=== PATIENT | female | born 2000 | race Two or more races ===

== ENCOUNTER 2024-10-20 14:25 | Observation (INO) | payer MEDICAID, SELFPAY ==
[2024-10-20 14:38] VITALS: BP 117/65; PULSE 115
[2024-10-20 14:39] VITALS: BMI 35.4
[2024-10-20 14:40] VITALS: BP 117/65; PULSE 115; RESP 100; RESP 18; TEMP 36.9
--- NOTE | 2024-10-20 15:10 | XR_ITS ---
Examination: OB Transvaginal ultrasound of the pelvis, limited Technique: Transvaginal sonographic images pelvis performed using ferrell scale imaging Exam date and time: October 20, 2024 1551 hours INDICATIONS: Vaginal bleeding beginning 2 days ago, unknown cervical length FINDINGS: Cardiac motion 150 BPM Cervix 2.7 cm closed IMPRESSION: Cervix 2.7 cm closed.
--- NOTE | 2024-10-20 15:10 | XR_ITS ---
Examination: Complete OB ultrasound greater than 14 weeks Date and time of exam: October 20, 2024 1529 hours INDICATIONS: Vaginal bleeding 2 days Findings: Viable intrauterine single fetus with single amniotic sac presentation cephalic Cardiac motion 148 BPM Placenta posterior grade 1 venous lakes, no abruption Umbilical cord insertion seen Amniotic fluid adequate Cervix 2.9 cm closed Right ovary 2.6 cm arterial flow Left ovary 2.4 cm arterial flow. Composite estimated gestational age based on BPD, head circumference, abdominal circumference, femur length is 20 weeks 0 days Estimated weight 332 g. Survey of intracranial anatomy, spinal anatomy, abdominal anatomy, four-chamber heart performed with no abnormalities identified. Impression: Viable intrauterine gestation cephalic presentation Negative for placental abruption.
== END 2024-10-20 17:30 | disposition home or self-care (01) ==
PROVIDERS: Admitting Provider Specialist; Visit Provider Specialist
DX: O46.92 Antepartum hemorrhage, unspecified, second trimester (principal); Z3A.21 21 weeks gestation of pregnancy
CPT/HCPCS: 59025; 59899; 76805; 76817

== ENCOUNTER 2024-12-25 15:17 | Outpatient (AMB) | payer MEDICAID, SELFPAY ==
[2024-12-25 15:30] VITALS: BP 117/82; PULSE 89; RESP 17; TEMP 36.7; O2SAT 96; BMI 37.0
--- NOTE | 2024-12-25 15:30 | OBCLNT_ITS ---
Vital Signs 12/25/24 15:30 Height 1.55 m Height Method Measured Weight 89.074 kg Weight Measurement Method Standing Scale BMI 37.0 BP 117/82 Blood Pressure Source Automatic Cuff Blood Pressure Location Right Upper Arm Position Sitting Respiration 17 Pulse 89 Pulse Source Monitor Temp 98.0 F Temp Source Temporal Artery Scan Pulse Oximetry (%) 96 Oxygen Delivery Method Room Air Allergies/Home Meds Allergies & Medications Allergies No Known Allergies Allergy (Verified 12/25/24 15:31) Medication Reconciliation No Known Home Medications 12/25/24 [History Confirmed 12/25/24] Intake Visit Data Collection New Patient or Established: Established Patient (seen at [facility] within 3 years) Reason for Visit:: OB TRANSFER Consent obtained for Telemed Visit: No Seen by Clinical Staff ONLY (RN/MA): No Counselor Supervisor Required: No Do You Feel Safe at Home: Yes Authorities Contacted: N/A PCP or OBGYN visit in last 3 months: Yes Date of Last PCP or OBGYN visit: 10/20/24 Hx Now: Yes Are you currently on any form of Control: No Last menstrual period: 05/19/24 Pain Present Currently: Yes Pain Location: Abdomen Pain scale:: 5 Smoking Status Smoking Status: Never smoker Questionnaires Covid-19 Vaccine Questionnaire Has patient been vacinated for Covid-19 Have you been vacinated for Covid-19: No PHQ-9 PHQ-2 Over the last 2 weeks, how often have you been bothered by any of the following problems? 1. Little interest or pleasure in doing things: not at all 2. Feeling down, depressed, or hopeless: not at all Total score: 0 PHQ-9 3. Trouble falling or staying asleep, or sleeping too much: Not at all 4. Feeling tired or having little energy: Not at all 5. Poor appetite or overeating: Not at all 6. Feeling bad about yourself - or that you are a failure or have let yourself or your family down: Not at all 7. Trouble concentrating on things, such as reading the newspaper or watching television: Not at all 8. Moving or speaking so slowly that other people could have noticed? - Or the opposite - being so fidgety or restless that you have been moving around a lot more than usual: not at all 9. Thoughts that you would be better off or of hurting yourself in some way: Not at all Total score: 0 If you checked off any problems, how difficult have these problems made it for you to do your work, take care of things at home, or get along with other people?: not difficult at all Source: Developed by Drs. Dae Esquivel, Edith Schwab, Philippe Grider and colleagues, with an educational kellen from [employer]. Social History Living Situation History Lives With: Family Housing: House Tobacco History Smoking Status: Never smoker Alcohol History Alcohol Intake: Never Domestic Abuse History Do You Feel Safe at Home: Yes History of Present Illness HPI Narrative Kitty Calix is a 24-year-old at 30 weeks gestation, transferring care from Dr. Hunt at [facility]. She has a history of at 32 weeks in 2021 and is presenting for ongoing care and management of potential labor risk. The patient's last menstrual period was on 04-18-2024, initially giving an estimated due date of 01-23-2025. However, an ultrasound on December 02, 2024, placed her at 26 weeks and 5 days with a revised estimated due date of 03-05-2025. Due to the 6-week discrepancy between her last menstrual period and ultrasound dates, the final due date has been established by ultrasound. Ms. Calix reports experiencing low pressure but denies any contractions or leaking. Given her history of , a referral was sent to [facility] for monitoring labor in November, but the patient has not been contacted. In her previous , she delivered a 4-pound female fetus at 32 weeks due to contractions. Medical History: - Chlamydia, treated in October 2024 - Anemia during previous Obstetric History: - GPAL: A0 L1 - 2021: delivery at 32 weeks gestation due to contractions. Female , weight 4 pounds. Did not breastfeed. - Ultrasound (12-02-2024): Gestational age 26 weeks and 5 days, estimated due date 03/05/2025 [employer]: Past Medical History Past Medical History: No Hx Renal Disease, No Hx Diabetes Mellitus Type 1 and No Hx Diabetes Mellitus Type 2 OB Initial Visit OB Flowsheet OB Flowsheet Initial Weight: Not Recorded Date -?-?-?-?-?-?-?-?-?-?-?-?- EGA Weight BP Alb Glu CTX Pres Fundal ht FHR Mov Dilation Station Effacement Hx Notes Visit Note 12/25/24 -?-?-?-?-?-?-?-?-?-?-?-?- 30w 0d 89.074 kg 117/82 absent unknown 30 145 active 30w (ANGELICA 03/05/25 by US) w/ hx of at 32w, now c/o low pelvic pressure, no CTX/LOF. Hx of treated chlamydia (10/30), prior anemia. Plan: TVUS for CL, fFN at hospital, give betamethasone, refer stat to [facility], use US-based ANGELICA, review labs for Hb and ASHWIN at next visit after 2wks. PTL precautions reviewed in detail Menstrual History Menstrual reliability: approximate (month known) Flow: normal Menstrual regularity: regular Monthly: Yes Age at menarche: 12 On control pills at conception: No Date of positive home test: 09/05/24 OB History : 2 Para: 1 Hx # Pregnancies: 0 Hx Total # of Abortions (Spontaneous & Elective): 0 # of Living Children: 1 Infection History & Risk Evaluation History of STDs: none HIV risk evaluation: low risk Hepatitis B risk evaluation: low risk Patient or partner has history of Genital Herpes: No Genetic Screening & History Genetic Screening/Teratology Counseling - Includes patient, baby's father, or anyone in either family with: 1. Patient's age 35 years or older as of estimated date of delivery: No 2. Thalassemia (Austrian, Kinyarwanda, Mediterranean, or Background); MCV less than 80: No 3. Neural Tube Defect (Meningomyelocele, Spina Bifida, or Anencephaly): No 4. Congenital Heart Defect: No 5. Down Syndrome: No 6. Canelo-Sachs (Ashkenazi Jain, Cajun, Cameroonian Burmese): No 7. Leonard Disease (Ashkenazi Jain): No 8. Familial Dysautonomia (Ashkenazi Jain): No 9. Sickle Cell Disease or Trait (): No 10. Hemophilia or other blood disorders: No 11. Muscular Dystrophy: No 12. Cystic Fibrosis: No 13. [place]'s Chorea: No 14. Mental Retardation/Autism: No 15. Other inherited genetic or chromosomal disorder: No 16. Maternal Metabolic Disorder (EG,TYPE 1 Diabetes, PKU): No 17. Patient or baby's father had a child with defects not listed above: No 18. Recurrent loss or a stillbirth: No 19. Medications (including supplements, vitamins, herbs or otc drugs)/illicit/recreational drugs/alcohol since last menstrual period: No 20. Any other: No Infection History 1. Live with someone with TB or exposed to TB: No 2. Rash or viral illness since last menstrual period: No 3. Hepatitis B,C: No Other (see comments) Source: [employer] Exam General General Appearance: alert, in no apparent distress and healthy appearing Head Head exam: atraumatic Neck Neck exam: Present normal inspection and trachea midline Chest Chest inspection: Present normal inspection and symmetric chest wall rise External exam: Present normal external exam; Absent tenderness Neuro Neurological exam: Present oriented X3 Psych Psychiatric exam: Present normal affect and normal mood Office Procedures OB Clinic LOC & Office Proc's Nursing/Assessment Patient Status: Established Patient OB Clinic Nursing Assessment: Medication Reconciliation, Update PMH in EMR and Vital Signs OB Clinic Coordination of Care: Complex Care and Chronic Disease 1-5, Consent,records obtained, informed consent, 4+ Authorizations needed, Lab and Imaging orders and Results/Orders obtained Special Needs: Heart tones Established Patient Charge Established Patient Point Assignment: 135 Established Patient Point Charge: EP Level 4 (120-155) Assessment & Plan Diagnosis / Problem List (1) History of delivery, currently : Status: Acute (2) Supervision of high risk , unspecified, third trimester: Status: Acute Plan at risk for labor Assessment: Patient is currently at 30 weeks gestation based on ultrasound dating. History of at 32 weeks in 2021 increases risk for recurrent labor. Patient reports low pressure but denies contractions or leaking fluid. Plan: - Perform transvaginal ultrasound for cervical length measurement - Collect fibronectin test at the hospital - Administer betamethasone - Place stat referral to [facility] or [facility] specialist for labor monitoring - If cervical length <3 cm, consider medication to prevent labor - Complete OB ultrasound Discrepancy in estimated due date Assessment: 6-week discrepancy noted between last menstrual period and ultrasound dating. Ultrasound performed on 12/02/2024 placed gestational age at 26 weeks and 5 days. Given the significant discrepancy, ultrasound dating is being used to establish the final due date. Plan: - Establish final ANGELICA as 03/05/2025 based on ultrasound dating - Educate patient on revised gestational age and due date History of chlamydia infection Assessment: Patient was treated for chlamydia in October 2024. Current infection status unknown. Plan: - Review records for confirmation of adequate treatment and test of cure - Consider repeat testing if indicated History of anemia Assessment: Patient reported anemia in previous . Current hemoglobin status unknown. Plan: - Review recent lab results for hemoglobin levels - Order complete blood count if not recently performed
== END 2024-12-25 15:57 | disposition home or self-care (01) ==
LOC: HODSOBC 15:17
PROVIDERS: Supervising Provider Obstetrics & Gynecology; Visit Provider Obstetrics & Gynecology
DX: O09.213 Supervision of pregnancy with history of pre-term labor, third trimester (principal); O09.293 Supervision of pregnancy with other poor reproductive or obstetric history, third trimester; Z3A.30 30 weeks gestation of pregnancy; Z87.59 Personal history of other complications of pregnancy, childbirth and the puerperium
CPT/HCPCS: 99214; G0463

== ENCOUNTER 2024-12-26 17:33 | Outpatient (CLI) | payer MEDICAID, SELFPAY ==
[2024-12-26 17:53] VITALS: BP 106/62; PULSE 90
[2024-12-26] MEDS: BETAMET ACET/BETAMET NA PH (Celestone) 6 MG/ML VIAL 12 MG IM (18:14)
[2024-12-26 18:24] VITALS: BP 106/62; PULSE 90; RESP 18; RESP 99; TEMP 36.7; BMI 30.8
== END 2024-12-26 18:25 | disposition home or self-care (01) ==
LOC: S4S1 17:35 → S4SX 17:36
PROVIDERS: Referring Provider Obstetrics & Gynecology; Visit Provider Obstetrics & Gynecology
DX: Z34.03 Encounter for supervision of normal first pregnancy, third trimester (principal); Z36.89 Encounter for other specified antenatal screening; Z3A.30 30 weeks gestation of pregnancy
CPT/HCPCS: 59025; 96372; J0702

== ENCOUNTER 2025-01-16 15:41 | Outpatient (AMB) | payer MEDICAID, SELFPAY ==
[2025-01-16 15:53] VITALS: BP 113/74; PULSE 100; RESP 16; TEMP 36.2; O2SAT 98; BMI 38.3
--- NOTE | 2025-01-16 15:53 | OBCLNT_ITS ---
Vital Signs 01/16/25 15:53 Height 1.55 m Height Method Stated Weight 92.136 kg Weight Measurement Method Standing Scale BMI 38.3 BP 113/74 Blood Pressure Source Automatic Cuff Blood Pressure Location Left Upper Arm Position Sitting Respiration 16 Pulse 100 Pulse Source Monitor Temp 97.2 F Temp Source Oral Pulse Oximetry (%) 98 Oxygen Delivery Method Room Air Allergies/Home Meds Allergies & Medications Allergies No Known Allergies Allergy (Verified 02/20/25 13:23) Medication Reconciliation vit no.95-ferrous fumarate 28 mg-folic acid 800 mcg tablet () 1 tab PO QDAY 12/25/24 [History Confirmed 02/20/25] Intake Visit Data Collection New Patient or Established: Established Patient (seen at [facility] within 3 years) Reason for Visit:: OBC Seen by Clinical Staff ONLY (RN/MA): No Oriental Rug Repairer Required: No Do You Feel Safe at Home: Yes Authorities Contacted: N/A PCP or OBGYN visit in last 3 months: Yes Date of Last PCP or OBGYN visit: 12/26/24 Hx Now: Yes Are you currently on any form of Control: No Pain Present Currently: No Pain Scale Used: Palencia-Rivera/Numerical Pain scale:: 0 Smoking Status Smoking Status: Never smoker Questionnaires Covid-19 Vaccine Questionnaire Has patient been vacinated for Covid-19 Have you been vacinated for Covid-19: Yes PHQ-9 PHQ-2 Over the last 2 weeks, how often have you been bothered by any of the following problems? 1. Little interest or pleasure in doing things: not at all 2. Feeling down, depressed, or hopeless: not at all Total score: 0 PHQ-9 3. Trouble falling or staying asleep, or sleeping too much: Not at all 4. Feeling tired or having little energy: Not at all 5. Poor appetite or overeating: Not at all 6. Feeling bad about yourself - or that you are a failure or have let yourself or your family down: Not at all 7. Trouble concentrating on things, such as reading the newspaper or watching television: Not at all 8. Moving or speaking so slowly that other people could have noticed? - Or the opposite - being so fidgety or restless that you have been moving around a lot more than usual: not at all 9. Thoughts that you would be better off or of hurting yourself in some way: Not at all Total score: 0 If you checked off any problems, how difficult have these problems made it for you to do your work, take care of things at home, or get along with other people?: not difficult at all Source: Developed by Drs. Dae Esquivel, Edith Schwab, Philippe Grider and colleagues, with an educational kellen from [employer] Depression screen completed yes Social History Living Situation History Lives With: Family Housing: House Tobacco History Smoking Status: Never smoker Second Hand Smoke Exposure: No Alcohol History Alcohol Intake: Never Domestic Abuse History Do You Feel Safe at Home: Yes RFP WRITER: Past Medical History Past Medical History: No Hx Renal Disease, No Hx Diabetes Mellitus Type 1 and No Hx Diabetes Mellitus Type 2 Care OB Visit Log OB Flowsheet Initial Weight: Not Recorded Date -?-?-?-?-?-?-?-?-?-?-?-?- EGA Weight BP Alb Glu CTX Pres Fundal ht FHR Mov Dilation Station Effacement Hx Notes Visit Note 12/25/24 -?-?-?-?-?-?-?-?-?-?-?-?- 29w 3d 89.074 kg 117/82 absent unknown 30 145 active 30w (ANGELICA 03/05/25 by US) w/ hx of at 32w, now c/o low pelvic pressure, no CTX/LOF. Hx of treated chlamydia (10/30), prior anemia. Plan: TVUS for CL, fFN at hospital, give betamethasone, refer stat to [facility], use US-based ANGELICA, review labs for Hb and ASHWIN at next visit after 2wks. PTL precautions reviewed in detail 01/16/25 -?-?-?-?-?-?-?-?-?-?-?-?- 32w 4d 92.136 kg 113/74 absent unknown 33 140 active - Patient reports experiencing contractions: - Described as stomach pains affecting the whole stomach - Associated with stomach becoming re ally hard - Occurring mostly every day - Denies other issues or complications - Reports good movement - Previous labor history: - Started with a little bit of bleedin g - Followed by water breaking - Occurred at the same hospital as current care - Return for OB check in 2 weeks - After next appointment, visits will be come weekly - If experiencing persistent stomach tig htening/hardenin. Drink 24 ounces of water 2. If symptoms persist, go to hospital for contraction monitoring - Dr. Husain to follow up with Dr. Ian parham regarding urgent referral and appointment scheduling - Dr. Husain to review records from stephon balderrama's previous labor delivery 01/29/25 -?-?-?-?-?-?-?-?-?-?-?-?- 34w 3d 91.739 kg 99/68 absent unknown 34 145 active - Patient reports feeling a lot of pressure down here in the pelvic area. - Pressure is likely positional. - Denies contractions or other issues. - No reported leaking or bleeding. - movement is normal. - Patient had a history of deliv oleksandr at 32 weeks in a previous . - Current has progressed bey ond this gestational age without complications. - Patient was unable to attend a previou y scheduled maternal- medicine consultation due to transportation issues. - Reports having everything set up at [facility] for the baby's arrival. - Has a 3-year-old daughter who is excited about becoming a big sis ter. - Follow-up appointment scheduled in 2 weeks - Group B Streptococcus (GBS) culture sw ab to be performed at next appointment - Patient instructed to monitor for cont ractions, timing them if they occur - Patient advised to seek immediate [facility] attention if: - Contractions occur every 5 minutes o r more frequently - Any fluid leakage is observed - Any bleeding occurs - movement is not felt for more than 2 hours ANGELICA Calculator Estimated Delivery Date Method Current WG Current Estimate 03/09/25 Ultrasound #1 37w 6d Other Estimates 01/23/25 LMP (Uncertain) 44w 2d 03/17/25 Ultrasound #2 36w 5d Notes Visit Date: 01/29/25 Last Updated by: Jim Husain MD - Transvaginal cervical length (12/25/2024): 2.9 cm, closed - ultrasound (12/25/2024): - Gestational age: 28 weeks and 2 days - ultrasound (10/20/2024): - Gestational age: 20 weeks and 0 days Assessment & Plan Diagnosis / Problem List (1) History of delivery, currently : Status: Acute (2) Supervision of high risk , unspecified, third trimester: Status: Acute Plan Problem List - , 33 weeks and 1 day - History of labor - Uterine contractions Assessment 24-year-old female at 33 weeks and 1 day gestation with history of labor. Recent transvaginal ultrasound showed cervical length of 2.9 cm, indicating low risk for labor. fibronectin test was negative, further suggesting low risk for labor. Patient reports experiencing contractions with whole stomach tightening and hardening, occurring mostly daily. Previous labor episode began with bleeding followed by premature rupture of membranes. movement noted. Plan - Return for OB check in 2 weeks - After next appointment, visits will become weekly - If experiencing persistent stomach tightening/hardenin. Drink 24 ounces of water 2. If symptoms persist, go to hospital for contraction monitoring - Dr. Husain to follow up with Dr. Shi regarding urgent referral and appointment scheduling - Dr. Husain to review records from patient's previous labor delivery 1. Progress Reviewed gestational age, growth, and heart rate. Planned frequent visits (every 2 weeks until 36 weeks, then weekly). 2. Instructed patient to monitor movements and report decreases i mmediately. 3. Testing Counseled on routine third-trimester labs per guidelines. Discussed potential need for ultrasound or monitoring based on risk factors. 4. Preeclampsia Precaution Educated on preeclampsia signs: severe headache, vision changes, right upper quadrant pain, sudden swelling. Advised urgent reporting of symptoms and discussed blood pressure monitoring if high risk. 5. Labor Precautions Reviewed labor signs: regular contractions, pelvic pressure, back pain, bleeding, or fluid leakage. Instructed to seek immediate care for these symptoms. 6. Lifestyle and Delivery Preparation Reinforced vitamins, nutrition, and safe activity. Discussed plan, pain management, and . Advised on labor preparation (e.g., hospital bag) and expectations. 7. Psychosocial Support Assessed emotional well-being and offered resources for mental health or parenting support.
== END 2025-01-16 16:11 | disposition home or self-care (01) ==
LOC: HODSOBC 15:41
PROVIDERS: Supervising Provider Obstetrics & Gynecology; Visit Provider Obstetrics & Gynecology
DX: O09.213 Supervision of pregnancy with history of pre-term labor, third trimester (principal); Z3A.32 32 weeks gestation of pregnancy
CPT/HCPCS: 99213; G0463

== ENCOUNTER 2025-01-29 14:31 | Outpatient (AMB) | payer MEDICAID, SELFPAY ==
[2025-01-29 15:02] VITALS: BP 99/68; PULSE 91; RESP 18; TEMP 36.5; O2SAT 96; BMI 38.2
--- NOTE | 2025-01-29 15:02 | OBCLNT_ITS ---
Vital Signs 01/29/25 15:02 Height 1.55 m Height Method Stated Weight 91.739 kg Weight Measurement Method Standing Scale BMI 38.2 BP 99/68 Blood Pressure Source Automatic Cuff Blood Pressure Location Right Upper Arm Position Sitting Respiration 18 Pulse 91 Pulse Source Monitor Temp 97.7 F Temp Source Temporal Artery Scan Pulse Oximetry (%) 96 Oxygen Delivery Method Room Air Allergies/Home Meds Allergies & Medications Allergies No Known Allergies Allergy (Verified 01/16/25 15:54) Intake Visit Data Collection New Patient or Established: Established Patient (seen at [facility] within 3 years) Reason for Visit:: OBC FOLLOW UP Do You Feel Safe at Home: Yes Authorities Contacted: N/A PCP or OBGYN visit in last 3 months: Yes Date of Last PCP or OBGYN visit: 01/16/25 Hx Now: Yes Pain Present Currently: No Smoking Status Smoking Status: Never smoker Questionnaires PHQ-9 PHQ-2 Over the last 2 weeks, how often have you been bothered by any of the following problems? 1. Little interest or pleasure in doing things: not at all PHQ-9 8. Moving or speaking so slowly that other people could have noticed? - Or the opposite - being so fidgety or restless that you have been moving around a lot more than usual: not at all Source: Developed by Drs. Dae Esquivel, Edith Schwab, Philippe Grider and colleagues, with an educational kellen from [employer]. 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 Hx of treated chlamydia (10/30), prior anemia. Plan: TVUS for CL, fFN at hospital, give betamethasone, refer stat to MFM, use US-based ANGELICA, review labs for Hb and ASHWIN at next visit after 2wks. PTL precautions reviewed in detail 01/29/25 -?-?-?-?-?-?-?-?-?-?-?-?- 34w 3d 91.739 kg 99/68 absent unknown 34 145 active - Patient reports feeling a lot of pressure down here in the pelvic area. - Pressure is likely positional. - Denies contractions or other issues. - No reported leaking or bleeding. - movement is normal. - Patient had a history of deliv oleksandr at 32 weeks in a previous . - Current has progressed bey ond this gestational age without complications. - Patient was unable to attend a previou y scheduled maternal- medicine consultation due to transportation issues. - Reports having everything set up at [facility] for the baby's arrival. - Has a 3-year-old daughter who is excited about becoming a big sis ter. - Follow-up appointment scheduled in 2 weeks - Group B Streptococcus (GBS) culture sw ab to be performed at next appointment - Patient instructed to monitor for cont ractions, timing them if they occur - Patient advised to seek immediate medi [facility] attention if: - Contractions occur every 5 minutes o r more frequently - Any fluid leakage is observed - Any bleeding occurs - movement is not felt for more than 2 hours ANGELICA Calculator Estimated Delivery Date Method Current WG Current Estimate 03/09/25 Ultrasound #1 34w 4d Other Estimates 01/23/25 LMP (Uncertain) 41w 0d 03/17/25 Ultrasound #2 33w 3d Notes Visit Date: 01/29/25 Last Updated by: Jim Husain MD - Transvaginal cervical length (12/25/2024): 2.9 cm, closed - ultrasound (12/25/2024): - Gestational age: 28 weeks and 2 days - ultrasound (10/20/2024): - Gestational age: 20 weeks and 0 days Office Procedures OBC Clinic LOC & Office Proc's Nursing/Assessment Patient Status: Established Patient OB Clinic Nursing Assessment: Medication Reconciliation, Update PMH in EMR and Vital Signs OB Clinic Coordination of Care: Complex Care and Chronic Disease 1-5, Education Complex Pt/Fam, Consent,records obtained, informed consent and Lab and Imaging orders Special Needs: Heart tones Established Patient Charge Established Patient Point Assignment: 125 Established Patient Point Charge: EP Level 4 (120-155) Assessment & Plan Diagnosis / Problem List (1) History of delivery, currently : Status: Acute (2) Supervision of high risk , unspecified, third trimester: Status: Acute Plan Problem List - , 34 weeks and 3 days gestation - History of delivery at 32 weeks Assessment at 34 weeks 3 days gestation based on 20-week ultrasound, with history of previous delivery at 32 weeks. Patient reports feeling pressure in the pelvic area but denies contractions. heart rate auscultated at 145 bpm, which is within normal range. Transvaginal cervical length measured 2.9 cm and closed on 12/25/2024 at 28 weeks 2 days gestation. Patient is now considered low- risk for labor due to progression beyond 32 weeks without onset of labor. lung maturity is likely achieved at current gestational age. Plan - Follow-up appointment scheduled in 2 weeks - Group B Streptococcus (GBS) culture swab to be performed at next appointment - Patient instructed to monitor for contractions, timing them if they occur - Patient advised to seek immediate medical attention if: - Contractions occur every 5 minutes or more frequently - Any fluid leakage is observed - Any bleeding occurs - movement is not felt for more than 2 hours 1. Progress Reviewed gestational age [34 weeks and 3 days], growth, and heart rate [145 bpm]. Planned frequent visits (every 2 weeks until 36 weeks, then weekly). 2. Instructed patient to monitor movements and report decreases immediatel y. 3. Testing Counseled on routine third-trimester labs per guidelines. Discussed potential need for ultrasound or monitoring based on risk factors. 4. Preeclampsia Precaution Educated on preeclampsia signs: severe headache, vision changes, right upper quadrant pain, sudden swelling. Advised urgent reporting of symptoms and discussed blood pressure monitoring if high risk. 5. Labor Precautions Reviewed labor signs: regular contractions, pelvic pressure, back pain, bleeding, or fluid leakage. Instructed to seek immediate care for these symptoms. 6. Lifestyle and Delivery Preparation Reinforced vitamins, nutrition, and safe activity. Discussed plan, pain management, and . Advised on labor preparation (e.g., hospital bag) and expectations. 7. Psychosocial Support Assessed emotional well-being and offered resources for mental health or parenting support.
== END 2025-01-29 15:34 | disposition home or self-care (01) ==
LOC: HODSOBC 14:31
PROVIDERS: Supervising Provider Obstetrics & Gynecology; Visit Provider Obstetrics & Gynecology
DX: O09.293 Supervision of pregnancy with other poor reproductive or obstetric history, third trimester (principal); Z3A.34 34 weeks gestation of pregnancy
CPT/HCPCS: 99214; G0463

== ENCOUNTER 2025-02-18 15:30 | Outpatient (RCR) | payer MEDICAID, SELFPAY ==
--- NOTE | 2025-02-04 16:05 | XR_ITS ---
Examination: Biophysical profile, ultrasound Date and time of exam: February 04, 2025, 6006 hours Indications: Diagnosis premature labor today Technique: Multiple transabdominal sonographic images of the pelvis abdomen obtained. Attention is directed to the breathing movement, gross body movement, amniotic fluid volume and tone. Findings: Amniotic fluid index 10.1 cm Total biophysical profile is 8 of 8. breathing movement is 2. Gross body movement is 2. tone is 2. Qualitative amniotic fluid volume is 2 Impression: Biophysical profile is 8 of 8.
[2025-02-04 16:24] VITALS: BP 109/68; PULSE 90; RESP 16; TEMP 36.7
--- NOTE | 2025-02-11 15:51 | XR_ITS ---
Examination: Biophysical profile, ultrasound Date and time of exam: February 11, 2025, 1555 hours INDICATIONS: High risk , history labor Technique: Multiple transabdominal sonographic images of the pelvis abdomen obtained. Attention is directed to the breathing movement, gross body movement, amniotic fluid volume and tone. Findings: Amniotic fluid index 12.4 cm Total biophysical profile is 8 of 8. breathing movement is 2. Gross body movement is 2. tone is 2. Qualitative amniotic fluid volume is 2 Impression: Biophysical profile is 8 of 8.
[2025-02-11 16:45] VITALS: BP 117/71; PULSE 85; RESP 16; TEMP 36.9
--- NOTE | 2025-02-18 15:37 | XR_ITS ---
Examination: Biophysical profile, ultrasound Date and time of exam: February 18, 2025, 1552 hours INDICATIONS: High risk , history labor Technique: Multiple transabdominal sonographic images of the pelvis abdomen obtained. Attention is directed to the breathing movement, gross body movement, amniotic fluid volume and tone. Findings: Amniotic fluid index 9.8 cm Total biophysical profile is 8 of 8. breathing movement is 2. Gross body movement is 2. tone is 2. Qualitative amniotic fluid volume is 2 Impression: Biophysical profile is 8 of 8.
[2025-02-18 16:09] VITALS: BP 103/65; PULSE 113; RESP 16; TEMP 36.9
== END 2025-02-18 23:59 | disposition home or self-care (01) ==
LOC: S4S1 15:30
PROVIDERS: Referring Provider Obstetrics & Gynecology; Visit Provider Obstetrics & Gynecology
DX: O09.893 Supervision of other high risk pregnancies, third trimester (principal); Z3A.37 37 weeks gestation of pregnancy
CPT/HCPCS: 59025; 76819

== ENCOUNTER 2025-02-20 13:10 | Outpatient (AMB) | payer MEDICAID, SELFPAY ==
--- NOTE | 2025-02-20 13:15 | OBCLNT_ITS ---
Vital Signs 02/20/25 13:23 Height 1.55 m Height Method Stated Weight 92.193 kg Weight Measurement Method Standing Scale BMI 38.3 BP 109/76 Blood Pressure Source Automatic Cuff Blood Pressure Location Left Upper Arm Position Sitting Respiration 18 Pulse 93 Pulse Source Monitor Temp 97.5 F Temp Source Oral Pulse Oximetry (%) 97 Oxygen Delivery Method Room Air Allergies/Home Meds Allergies & Medications Allergies No Known Allergies Allergy (Verified 03/06/25 10:50) Medication Reconciliation vit no.95-ferrous fumarate 28 mg-folic acid 800 mcg tablet () 1 tab PO QDAY 12/25/24 [History Confirmed 03/06/25] ibuprofen 600 mg tablet 600 mg PO Q8H PRN pain #30 tabs 03/08/25 [Rx] misoprostol 200 mcg tablet (Cytotec) 200 mcg PO QID #14 tabs 03/08/25 [Rx] Intake Visit Data Collection New Patient or Established: Established Patient (seen at [facility] within 3 years) Reason for Visit:: CARE Seen by Clinical Staff ONLY (RN/MA): No Hydro Technician Required: No Do You Feel Safe at Home: Yes Authorities Contacted: N/A PCP or OBGYN visit in last 3 months: Yes Hx Now: Yes Are you currently on any form of Control: No Pain Present Currently: No Pain Scale Used: Palencia-Rivera/Numerical Pain scale:: 0 Smoking Status Smoking Status: Never smoker Questionnaires Covid-19 Vaccine Questionnaire Has patient been vacinated for Covid-19 Have you been vacinated for Covid-19: No PHQ-9 PHQ-2 Over the last 2 weeks, how often have you been bothered by any of the following problems? 1. Little interest or pleasure in doing things: not at all 2. Feeling down, depressed, or hopeless: not at all Total score: 0 PHQ-9 3. Trouble falling or staying asleep, or sleeping too much: Not at all 4. Feeling tired or having little energy: Not at all 5. Poor appetite or overeating: Not at all 6. Feeling bad about yourself - or that you are a failure or have let yourself or your family down: Not at all 7. Trouble concentrating on things, such as reading the newspaper or watching television: Not at all 8. Moving or speaking so slowly that other people could have noticed? - Or the opposite - being so fidgety or restless that you have been moving around a lot m ore than usual: not at all 9. Thoughts that you would be better off or of hurting yourself in some way: Not at all Total score: 0 Source: Developed by Drs. Dae Esquivel, Edith Schwab, Philippe Grider and colleagues, with an educational kellen from [employer]. 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 Hx of treated chlamydia (10/30), prior anemia. Plan: TVUS for CL, fFN at hospital, give betamethasone, refer stat to M, use US-based ANGELICA, review labs for Hb and ASHWIN at next visit after 2wks. PTL precautions reviewed in detail 01/16/25 -?-?-?-?-?-?-?-?-?-?-?-?- 32w 4d 92.136 kg 113/74 absent unknown 33 140 active - Patient reports experiencing contractions: - Described as stomach pains affecting the whole stomach - Associated with stomach becoming re ally hard - Occurring mostly every day - Denies other issues or complications - Reports good movement - Previous labor history: - Started with a little bit of bleedin g - Followed by water breaking - Occurred at the same hospital as current care - Return for OB check in 2 weeks - After next appointment, visits will be come weekly - If experiencing persistent stomach tig htening/hardenin. Drink 24 ounces of water 2. If symptoms persist, go to hospital for contraction monitoring - Dr. Husain to follow up with Dr. Ian parham regarding urgent referral and appointment scheduling - Dr. Husain to review records from stephon balderrama's previous labor delivery 01/29/25 -?-?-?-?-?-?-?-?-?-?-?-?- 34w 3d 91.739 kg 99/68 absent unknown 34 145 active - Patient reports feeling a lot of pressure down here in the pelvic area. - Pressure is likely positional. - Denies contractions or other issues. - No reported leaking or bleeding. - movement is normal. - Patient had a history of raul oleksandr at 32 weeks in a previous . - Current has progressed bey ond this gestational age without complications. - Patient was unable to attend a previou y scheduled maternal- medicine consultation due to transportation issues. - Reports having everything set up at [facility] for the baby's arrival. - Has a 3-year-old daughter who is excited about becoming a big sis ter. - Follow-up appointment scheduled in 2 weeks - Group B Streptococcus (GBS) culture sw ab to be performed at next appointment - Patient instructed to monitor for cont ractions, timing them if they occur - Patient advised to seek immediate [facility] attention if: - Contractions occur every 5 minutes o r more frequently - Any fluid leakage is observed - Any bleeding occurs - movement is not felt for more than 2 hours 02/20/25 -?-?-?-?-?-?-?-?-?-?-?-?- 37w 4d 92.193 kg 109/76 absent unknown 38 155 active - She has a history of cervical contraction and delivery. - Patient reports uterine contractions w ithout cervical change. - She has been stable at this time despite her history of d elivery. Labor precautions. Return in 1 week. ANGELICA Calculator Estimated Delivery Date Method Current WG Current Estimate 03/09/25 Ultrasound #1 41w 6d Other Estimates 01/23/25 LMP (Uncertain) 48w 2d 03/17/25 Ultrasound #2 40w 5d Notes Visit Date: 01/29/25 Last Updated by: Jim Husain MD - Transvaginal cervical length (12/25/2024): 2.9 cm, closed - ultrasound (12/25/2024): - Gestational age: 28 weeks and 2 days - ultrasound (10/20/2024): - Gestational age: 20 weeks and 0 days Office Procedures OBC Clinic LOC & Office Proc's Nursing/Assessment Patient Status: Established Patient OB Clinic Nursing Assessment: Medication Reconciliation, Update PMH in EMR and Vital Signs OB Clinic Coordination of Care: Complex Care and Chronic Disease 1-5, Consent,records obtained, informed consent, Education Simp Pt/Fam, 1 Ins Authorization, Lab and Imaging orders, Results/Orders obtained and Staff clarify orders Special Needs: Heart tones Miscellaneous Interventions: Culture Specimen Collection Established Patient Charge Established Patient Point Assignment: 165 Established Patient Point Charge: EP Level 5 (160-above) Assessment & Plan Diagnosis / Problem List (1) History of delivery, currently : Status: Acute Plan Problem List - , 37 weeks and 4 days gestation - Uterine contractions without cervical change - History of delivery Assessment 37-week and 4-day patient presenting for routine GBS culture with a history of delivery and cervical contractions. Currently experiencing uterine contractions without cervical change, though patient remains stable at this time. 1. Progress Reviewed gestational age, growth, and heart rate. Planned frequent visits (every 2 weeks until 36 weeks, then weekly). 2. Instructed patient to monitor movements and report decreases immediately. 3. Testing Counseled on routine third-trimester labs per guidelines. Discussed potential need for ultrasound or monitoring based on risk factors. 4. Preeclampsia Precaution Educated on preeclampsia signs: severe headache, vision changes, right upper quadrant pain, sudden swelling. Advised urgent reporting of symptoms and discussed blood pressure monitoring if high risk. 5. Labor Precautions Reviewed labor signs: regular contractions, pelvic pressure, back pain, bleeding, or fluid leakage. Instructed to seek immediate care for these symptoms. 6. Lifestyle and Delivery Preparation Reinforced vitamins, nutrition, and safe activity. Discussed plan, pain management, and . Advised on labor preparation (e.g., hospital bag) and expectations. 7. Psychosocial Support Assessed emotional well-being and offered resources for mental health or parenting support.
[2025-02-20 13:23] VITALS: BP 109/76; PULSE 93; RESP 18; TEMP 36.4; O2SAT 97; BMI 38.3
== END 2025-02-20 13:34 | disposition home or self-care (01) ==
LOC: HODSOBC 13:10
PROVIDERS: Supervising Provider Obstetrics & Gynecology; Visit Provider Obstetrics & Gynecology
DX: O09.213 Supervision of pregnancy with history of pre-term labor, third trimester (principal); O09.893 Supervision of other high risk pregnancies, third trimester; O47.1 False labor at or after 37 completed weeks of gestation; Z3A.37 37 weeks gestation of pregnancy
CPT/HCPCS: 99215; G0463

== ENCOUNTER 2025-03-06 10:02 | Outpatient (CLI) | payer MEDICAID, SELFPAY ==
[2025-03-06] VITALS (8 sets, daily range): BP systolic 103; BP diastolic 57; PULSE 94–105; RESP 16–97; TEMP 36.8; O2SAT 96–97; BMI 38.9
== END 2025-03-06 10:50 | disposition home or self-care (01) ==
LOC: S4S1 10:04 → S4SX 10:04
PROVIDERS: Referring Provider Obstetrics & Gynecology; Visit Provider Obstetrics & Gynecology
DX: Z34.83 Encounter for supervision of other normal pregnancy, third trimester (principal); Z36.9 Encounter for antenatal screening, unspecified; Z3A.40 40 weeks gestation of pregnancy
CPT/HCPCS: 59025

== ENCOUNTER 2025-03-07 07:15 | Inpatient (IN) | payer MEDICAID, SELFPAY ==
[2025-03-07] VITALS (13 sets, daily range): BP systolic 92–120; BP diastolic 61–81; PULSE 82–113; RESP 18–20; TEMP 36.7–37.7; O2SAT 97–98; BMI 38.9
[2025-03-07] MEDS: RINGERS LACTATED 1000 ML 1,000 ML 100 ML IV (07:40)
[2025-03-07] MEDS: MINERAL OIL 30 ML UDC TOP ×2 (07:51→08:06)
[2025-03-07] MEDS: OXYTOCIN in NS 20 units 20 UNIT/1,000 ML BAG 125 UNIT IV ×2 (07:55→11:20)
[2025-03-07] MEDS: OXYTOCIN INJ 10 UNIT/ML VIAL IM (07:57)
[2025-03-07] MEDS: LIDOCAINE HCL 1% 20 ML VIAL INFL (08:06)
[2025-03-07] MEDS: METHYLERGONOVINE INJ 0.2 MG/ML VIAL IM (08:11)
[2025-03-07 08:26] LABS: Basophils # (Auto) 0.1 Thou/mm3 (0.0-0.2); Basophils % (Auto) 0 % (0-2.5); Eosinophils # (Auto) 0.4 Thou/mm3 (0.0-0.5); Eosinophils % (Auto) 3 % (0-10); Hematocrit 35.4 % (36.0-46.0); Hemoglobin 12.9 g/dL (12.0-16.0); Immature Granulocytes Auto 0.10 Thou/mm3 (0.00-0.00); Lymphocytes # (Auto) 2.0 Thou/mm3 (1.0-4.8); Lymphocytes % (Auto) 13 % (10-50); Mean Corpuscular HGB Conc 36.4 g/dl (31.0-37.0); Mean Corpuscular Hemoglobin 32.6 pg (25.0-35.0); Mean Corpuscular Volume 89 fL (80-100); Monocytes # (Auto) 0.9 Thou/mm3 (0.0-0.8); Monocytes % (Auto) 6 % (0-12); Neutrophils # (Auto) 12.0 Thou/mm3 (1.8-7.7); Neutrophils % (Auto) 78 % (37-80); Nucleated Red Blood Cell # 0.00 Thou/mm3 (0.00-0.00); Nucleated Red Blood Cell % 0 /100 WBC (0); Platelet Count 192 Thou/mm3 (140-440); RDW Standard Deviation 39.6 fL (36.4-46.3); Red Blood Count 3.96 Miln/mm3 (4.00-5.20); White Blood Count 15.4 Thou/mm3 (3.6-11.0)
[2025-03-07] MEDS: TRANEXAMIC ACID 1,000 MG IVPB 1,000 MG/100 ML BAG 200 MG IV ×2 (08:32→09:43)
[2025-03-07] MEDS: fentaNYL CIT INJ 50 mCg/ML AMP 2ML 100 MCG IVP (08:47)
[2025-03-07 09:06] LABS: Syphilis Nonreactive (Nonreactive)
--- NOTE | 2025-03-07 09:07 | ESHP_ITS ---
Documentation for date of: 03/07/25 OB Labor/Induct. HPI History of Present Illness Chief complaint: labor : 2 Para: 1 Term pregnancies: 0 pregnancies: 1 Living children: 1 History of Abortions: Spontaneous and Elective: 0 History of sections: No History of : No Date of last menstrual period: 04/18/24 ANGELICA: 03/09/25 Gestational Age (weeks): 39 Gestational Age (days): 5 Gestational age based on last menstrual period: 46 History of present illness: 28-year-old 2 para 1 for complaints of contractions that got stronger about 6 in the morning. She is been followed [facility] for care and then transferred to [facility] clinic at 32 weeks. Her last. April 18, 2025. This gave a due date March 05, 2025. Patient had a 20-week ultrasound in October that put her due March 09, 2025 so her final ANGELICA March 09, 2025. Previous history of a at the first child. She is O+, screen negative, RPR nonreactive, rubella immune, hepatitis B negative, hep C negative, HIV negative, her gonorrhea was negative. Chlamydia positive in October. And a test of cure was sent January 29. 1 hour was normal. A1c 4.6 her NIPT and carrier screens negative. aFP negative. GBS negative History of Present Dating criteria: LMP confirmed by 2nd trimester US Adequate Care: Yes Ultrasounds: normal mid trimester US Obstetrical complications: none Medical complications: none Labs Labs: Negative: RPR, Hepatitis B, Rubella Titre, HIV, Chlamydia, Gonorrhea and Group Beta Strep Review of Systems Review of Systems Systems Reviewed: All systems reviewed, normal except as documented Past Medical History Surgical History SURGICAL: Negative Section Meds Home Medications and Allergies Home Medications ?Medication ?Instructions ?Recorded ?Confirmed ?Type vit no.95-ferrous 1 tab PO QDAY 12/25/2402/07 History fumarate 28 mg-folic acid 800 mcg tablet () Allergies Allergy/AdvReac Type Severity Reaction Status Date / Time No Known Allergies Allergy Verified 03/06/25 10:50 OB Exam Physical Exam Vital signs: Pulse BP 97 112/75 03/07/25 08:55 03/07/25 08:55 Narrative: Alert and oriented. Normal heart rate and rhythm. Lungs clear no wheezes. Gravid abdomen. Gynecoid pelvis. Estimated weight 7 pounds. Vaginal exam admission was 8-9, 80%, -2. Vertex. Bag water intact. heart rate category 1. She had contractions that were regular every 3 to 4 minutes Detailed Labor and Delivery Exam Dilation (cm): 8-9 Effacement (%): 80 Cervix position: anterior station: -2 Consistency: soft Presentation: Vertex Cervical ripeness score: 8 Membranes: ruptured Baseline heart rate: 145 monitor accelerations: 15x15 monitor decelerations: None bed bug exterminator variability: Moderate (11-25) Contraction frequency (min): 3-4 Contraction duration (sec): 30 Tachysystole: No Contraction intensity: Moderate OB Results Labs 03/07/25 07:05 Labs: Short CBC 03/07/25 Range/Units 07:05 WBC 15.4 H (3.6-11.0) Thou/mm3 Hgb 12.9 (12.0-16.0) g/dL Hct 35.4 L (36.0-46.0) % Plt Count 192 (140-440) Thou/mm3 OB Assessment & Plan Assessment and Plan (1) Normal labor and delivery: Status: Acute Additional Plan Induction method: none Plan: anticipate NVD and consult MD downing
--- NOTE | 2025-03-07 09:11 | OBDSUM_ITS ---
Data (Lewis) Data Hx Section: No : 2 Term: 0 : 1 Livin Abortions: Spontaneous & Theraputic: 0 Delivery Data (Lewis) Labor Data Initiation of labor: Spontaneous Induction/Augmentation Agent: None ROM date: 03/07/25 ROM time: 07:40 Amniotic membrane rupture type: Spontaneous Amniotic fluid description: Moderate Meconium Delivery Data EDC: 03/09/25 EDC calculated by:: ultrasound Date of arrival to unit: 03/07/25 Time of arrival to unit: 07:15 Onset of labor date: 03/07/25 Onset of labor time: 06:00 Complete dilation date: 03/07/25 Complete dilation time: 07:40 [place] delivery date: 03/07/25 [place] delivery time: 07:55 Gestational age (weeks): 40 Gestational age (days): 1 Placenta delivery date: 03/07/25 Placenta delivery time: 08:03 Stage 1 total time: Labor - Stage 1 Duration 1 hours and 40 minutes Delivered by: majo borja Delivery nurse: peg Roman nurse: rebel lockhart Wagon Driller at delivery: No Support person(s) at delivery: sister Delivery Method Delivery method: Normal Vaginal Delivery Presentation: Vertex position: OA Anesthesia Type Anesthesia Type: None and Local Delivery Room Medications Delivery room medications given: fentanyl, ancef 2 gm iv Delivery room medications: Lidocaine (local), Methergine 0.2 mg IM, Pitocin 10 u IM, Pitocin 20 u IV, Cytotec [address] CT and other (txa x2) Placenta Placenta delivery description: Spontaneous (spontaneous, intact, inspected) Cord blood sent to lab: Yes cord blood collection: Cord Blood Type Episiotomy Episiotomy description: None Lacerations #1: Perineal: 2nd degree (small, PU, no repair) Perineal repair Sutures used for repair: 3.0 Vicryl EBL Estimated blood loss (ml): 700 Umbilical Cord cord description: 3 Vessels Additional Procedures Patient continued to's blood and passed clots. I swept the lower uterine segment 3 times. Patient had been given Methergine 0.2 IM, Cytotec x 4 tabs. TXA x 1. 10. IM. And 500 cc bolus of Pitocin was 20. Still slow trickle and bleeding with gushes of blood with massage. Dr. Alvarado was called bedside to place a Bakri balloon. Decreased blood flow noted. And fundus remains firm, bustos cath placed [place] Data (Lewis) Data order: 1 [place]'s gender: Female Identification band number: [id number] 1 minute: 9 5 minutes: 9
[2025-03-07] MEDS: ceFAZolin/D5W 2 GM IV 2 GM/100 ML BAG IV ×2 (10:22→18:27)
[2025-03-07] MEDS: IBUPROFEN TAB 400 MG TABLET 800 MG PO (11:23)
[2025-03-07 12:44] LABS: Amphetamine/Metham Scrn,Ur OB Negative (Negative); Benzoylecgonine Screen, Ur OB Negative (Negative); Opiate Screen,Urine OB Negative (Negative); THC Screen,Urine OB Negative (Negative)
[2025-03-07 13:50] LABS: Basophils # (Auto) 0.0 Thou/mm3 (0.0-0.2); Basophils % (Auto) 0 % (0-2.5); Eosinophils # (Auto) 0.0 Thou/mm3 (0.0-0.5); Eosinophils % (Auto) 0 % (0-10); Hematocrit 34.3 % (36.0-46.0); Hemoglobin 12.2 g/dL (12.0-16.0); Immature Granulocytes Auto 0.15 Thou/mm3 (0.00-0.00); Lymphocytes # (Auto) 1.0 Thou/mm3 (1.0-4.8); Lymphocytes % (Auto) 5 % (10-50); Mean Corpuscular HGB Conc 35.6 g/dl (31.0-37.0); Mean Corpuscular Hemoglobin 32.0 pg (25.0-35.0); Mean Corpuscular Volume 90 fL (80-100); Monocytes # (Auto) 1.0 Thou/mm3 (0.0-0.8); Monocytes % (Auto) 5 % (0-12); Neutrophils # (Auto) 18.5 Thou/mm3 (1.8-7.7); Neutrophils % (Auto) 89 % (37-80); Nucleated Red Blood Cell # 0.00 Thou/mm3 (0.00-0.00); Nucleated Red Blood Cell % 0 /100 WBC (0); Platelet Count 187 Thou/mm3 (140-440); RDW Standard Deviation 39.8 fL (36.4-46.3); Red Blood Count 3.81 Miln/mm3 (4.00-5.20); White Blood Count 20.8 Thou/mm3 (3.6-11.0)
[2025-03-07] MEDS: DOCUSATE SOD 100 MG CAPSULE PO (20:54)
--- NOTE | 2025-03-07 22:38 | PC.NURSE ---
Patient complains of coughing with yellowish phlegm and asking for cough medication. Upon auscultation, patient has little wheezing on her right upper lobe. Patient denies chest pain, shortness of breath. O2 sat 98% room air. Brittanie was notified and ordered to refer patient to adult hospitalist. Hospitalist was called and referred this patient. Hospitalist will call back this nurse.
[2025-03-08 00:18] VITALS: TEMP 37.7
[2025-03-08] MEDS: ACETAMINOPHEN 325 MG TABLET 650 MG PO (00:18)
[2025-03-08 01:15] VITALS: TEMP 36.9
[2025-03-08] MEDS: ceFAZolin/D5W 2 GM IV 2 GM/100 ML BAG IV ×2 (02:01→09:59)
[2025-03-08 03:40] VITALS: BP 99/63; PULSE 80; RESP 20; TEMP 36.7; O2SAT 98
[2025-03-08 07:32] VITALS: BP 102/68; PULSE 80; RESP 18; TEMP 36.4; O2SAT 99
--- NOTE | 2025-03-08 09:57 | ESPR_ITS ---
Subjective Subjective Interval history: Patient has no/ complaints Headache no Blurry vision no Chest pain no Palpitations no Shortness of breath no Nausea or vomiting or constipation no Back pain no Dysuria no Dizziness no calf pain no She has a Roberson catheter Passing flatus yes Lochia / Has Bakhri balloon Exam Vital Signs Temp Pulse Resp BP Pulse Ox O2 Del Method 97.6 F 80 18 102/68 99 Room Air 03/08/25 07:32 03/08/25 07:32 03/08/25 07:32 03/08/25 07:32 03/08/25 07:32 03/08/25 07:32 Narrative Exam Patient had a normal vaginal delivery. hemorrhage and has a Bakhri Balloon and Roberson catheter She is doing well, VSS alert and oriented/normal insight and judgment/denies depression or anxiety No chest pain No shortness of breath No fever Back pain manageable/denies Moving all extremities No calf pain Ambulating pain managed by Tylenol and Motrin, normal uterus is firm Bakhri balloon was removed after delating and removing 450 cc of instillation fluid Roberson will be removed as well Planning to breast-feed/bottle Feed//both Counseled on breast-feeding Counseled on care and follow-up and to take oral iron Plan CBC now / observe vaginal bleeding CBC later today and possible discharge Objective Labs 03/08/25 10:37 Labs: Laboratory Results - last 24 hr 03/07/25 03/07/25 09:40 13:25 WBC 20.8 H D RBC 3.81 L Hgb 12.2 Hct 34.3 L MCV 90 MCH 32.0 MCHC 35.6 RDW Std Deviation 39.8 Plt Count 187 Neut % (Auto) 89 H Lymph % (Auto) 5 L [place] % (Auto) 5 Eos % (Auto) 0 Baso % (Auto) 0 Neut # (Auto) 18.5 H Lymph # (Auto) 1.0 [place] # (Auto) 1.0 H Eos # (Auto) 0.0 Baso # (Auto) 0.0 Immature Gran # (Auto) 0.15 H Absolute Nucleated RBC 0.00 Immature Gran % 1 H Nucleated RBC % 0 Urine Opiates Screen Negative U Amphetamin/Meth Scrn Negative U Cocaine Metab Screen Negative U Marijuana (THC) Screen Negative Assessment & Plan Problem List (1) Normal labor and delivery: Status: Acute (2) hemorrhage, delivered, current hospitalization: Problem details: Bakhri balloon removed / Plan to observe for bleeding and CBC now shows Hb of 10.8 stable Vital signs Start cytotec po 200 mcg qid and discharge home on oral cytotec and po iron and follow up in 2 to 3 weeks with her ob Status: Acute Time Spent With Patient Time: Total time spent is greater than 50% in coordination of care (as documented) at patient's floor/unit and/or counseling patient:
[2025-03-08] MEDS: DOCUSATE SOD 100 MG CAPSULE PO (09:59)
[2025-03-08 10:56] LABS: Basophils # (Auto) 0.0 Thou/mm3 (0.0-0.2); Basophils % (Auto) 0 % (0-2.5); Eosinophils # (Auto) 0.3 Thou/mm3 (0.0-0.5); Eosinophils % (Auto) 2 % (0-10); Hematocrit 30.5 % (36.0-46.0); Hemoglobin 10.8 g/dL (12.0-16.0); Immature Granulocytes Auto 0.18 Thou/mm3 (0.00-0.00); Lymphocytes # (Auto) 2.0 Thou/mm3 (1.0-4.8); Lymphocytes % (Auto) 14 % (10-50); Mean Corpuscular HGB Conc 35.4 g/dl (31.0-37.0); Mean Corpuscular Hemoglobin 32.9 pg (25.0-35.0); Mean Corpuscular Volume 93 fL (80-100); Monocytes # (Auto) 0.7 Thou/mm3 (0.0-0.8); Monocytes % (Auto) 5 % (0-12); Neutrophils # (Auto) 10.6 Thou/mm3 (1.8-7.7); Neutrophils % (Auto) 77 % (37-80); Nucleated Red Blood Cell # 0.00 Thou/mm3 (0.00-0.00); Nucleated Red Blood Cell % 0 /100 WBC (0); Platelet Count 144 Thou/mm3 (140-440); RDW Standard Deviation 41.5 fL (36.4-46.3); Red Blood Count 3.28 Miln/mm3 (4.00-5.20); White Blood Count 13.8 Thou/mm3 (3.6-11.0)
--- NOTE | 2025-03-08 11:09 | PC.NURSE ---
0930: Roberson and bakri balloon/drain removed by Dr. Garcia/ assisted by SATHISH Tuttle.
--- NOTE | 2025-03-08 11:38 | ESDS_ITS ---
DS: Providers Provider Date of admission: 03/07/25 07:24 Primary care physician: Physician No Primary/Family Admitting Provider: Brittanie Wiggins CNM Attending Provider on Admission: Brittanie Wiggins CNM Consults: 03/07/25 09:18 Referral Routine Comment: 03/07/25 21:43 Consult to Adult Hospitalist Urgent Comment: cough, runny nose and wheezing on the right lobe Consulting Provider: Brittanie Wiggins Attending Provider on DC: Irene Garcia MD Discharging Provider: Irene Garcia MD DS: Diagnosis Discharge Diagnosis (1) hemorrhage, delivered, current hospitalization: Status: Acute (2) Normal labor and delivery: Status: Acute (3) Vaginal delivery: Status: Acute Problem List Completed Was Problem List Reviewed/Reconciled?: Yes Summary/Hosp Course Brief History: 28-year-old 2 para 1 for complaints of contractions that got stronger about 6 in the morning. She is been followed [facility] for care and then transferred to [facility] at 32 weeks. Her last. April 18, 2025. This gave a due date March 05, 2025. Patient had a 20-week ultrasound in October that put her due March 09, 2025 so her final ANGELICA March 09, 2025. Previous history of a at the first child. She is O+, screen negative, RPR nonreactive, rubella immune, hepatitis B negative, hep C negative, HIV negative, her gonorrhea was negative. Chlamydia positive in October. And a test of cure was sent January 29. 1 hour was normal. A1c 4.6 her NIPT and carrier screens negative. aFP negative. GBS negative/ vaginal delivery/ PPH and had a Bakhri balloon and it was removed and Hb is 10.8 and stable VSS Peripartum Data Delivery Method: Normal Vaginal Delivery Episiotomy Description: None complications: uterine atony Status at Discharge Functional status at discharge: independent ambulation Overall status at discharge: patient is progressing back to baseline Time Spent with Patient Time attestation: Total time spent providing and/or coordinating discharge services: Time spent: Greater than 30 minutes Specific discharge activities: pelvic rest take oral iron take po cytotec x 3 days 200 mcg QID x 3 days Exam Vital Signs Temp Pulse Resp BP Pulse Ox O2 Del Method 97.6 F 80 18 102/68 99 Room Air 03/08/25 07:32 03/08/25 07:32 03/08/25 07:32 03/08/25 07:32 03/08/25 07:32 03/08/25 07:32 Narrative Exam alert x3 chest clear CVS RRR NO thromegaly Uterus is nontender Uterus is firm Just below the umbilicus Bowel sounds present Abdomen soft no hernias noted/no CVAT lochia normal No calf tenderness Edema mild Discharge Plan Plan Patient Disposition: HOME (Self Care) Patient condition on transfer: Stable Prescriptions/Referrals Prescriptions/Med Rec: New misoprostol [Cytotec] 200 mcg tablet 200 mcg PO QID Qty: 14 0RF ibuprofen 600 mg tablet 600 mg PO Q8H PRN (Reason: pain) Qty: 30 0RF No Action PNV no.95-ferrous fumarate-FA [] 28 mg iron- 800 mcg tablet 1 tab PO QDAY Patient Comments: TAKE 1 TABLET BY MOUTH EVERY DAY Referrals: No Primary/Family,Physician [Primary Care Provider] Patient/Caregiver Discharge Instructions Discharge Activity: activity as tolerated Other Discharge Activity Instructions:: pelvic rest x 6 weeks Tylenol / Motrin OTC for pain / cytotec as ordered If heavy vaginal bleeding to return to hospital Education Materials: Hemorrhage Print Language: French Stand Alone Forms: Angy Award Info., Patient Portal Info Letter Discharge Order Discharge Orders: Discharge (Routine); Ordered 03/08/25 Ordered By: Irene Garcia Planned Discharge Date 03/08/25
[2025-03-08 12:05] VITALS: BP 105/75; PULSE 84; RESP 16; TEMP 36.4; O2SAT 97
--- NOTE | 2025-03-08 12:36 | PC.NURSE ---
1150: DR MOSS updated on pt. cbc results. Hgb 10.8/ Hct 30.5/ WBC 13.8. No orders received. Per MD will put in discharge order for patient.
== END 2025-03-08 13:55 | disposition home or self-care (01) | DRG 542 ==
LOC: S4SX 09:01 → S4NX 13:38
PROVIDERS: Obstetrics & Gynecology; Admitting Provider Advanced Practice Midwife; Visit Provider Advanced Practice Midwife
DX: O70.1 Second degree perineal laceration during delivery (principal); O72.1 Other immediate postpartum hemorrhage; O77.0 Labor and delivery complicated by meconium in amniotic fluid; Z3A.39 39 weeks gestation of pregnancy; Z37.0 Single live birth
CPT/HCPCS: 36415; 59409; 80307; 85025; 86780; 86850; 86900; 86901; J0689; J2210; J2590; J3010; J3490; J7120; S0191; A9270